=== PATIENT | female | born 1965 | race African-American/Black ===

== ENCOUNTER 2017-07-01 05:39 | Inpatient (IN) | payer MEDICAID ==
[~2017-07-01] VITALS: Ht 177.8 cm; Wt 68.5 kg
[~2017-07-01 05:39] MED LIST: ASPI-1159 PO; ATOR10TA69 PO; ATROV IH; CARV12.545 PO; DOCU-150 PO; FAMO20TA8 PO; FURO-151 PO; ISOS30TA6 PO; KEPP500 PO; PHEN30TA42 PO; POTA10TA15 PO
[2017-07-01 06:34] LABS: BASOPHILS % 0.3 % (0.0-2.0); EOSINOPHILS % 1.9 % (0.0-5.0); HEMATOCRIT. 38.5 % (36.0-48.0); HEMOGLOBIN. 12.4 g/dL (12.0-16.0); LYMPHOCYTES % 16.9 % (20.0-50.0); MEAN CORPUSCULAR HEMOGLOBIN 29.1 pg (28.0-32.0); MEAN PLATELET VOLUME 8.6 fl (7.4-10.4); MONOCYTES % 6.5 % (2.0-8.0); NEUTROPHILS % 74.4 % (40.0-76.0); PLATELET 185 x1000/uL (130-400); RED BLOOD CELL COUNT 4.27 mill/uL (4.2-5.4); RED CELL DISTRIBUTION WIDTH 21.5 % (11.6-14.6)
[2017-07-01 06:42] LABS: INR 2.7; PROTHROMBIN TIME 28.4 sec (9.4-11.6)
[2017-07-01 06:51] LABS: CARBON DIOXIDE 29 mEq/L (21-32); CHLORIDE 109 mEq/L (98-107); TROPONIN I 0.04 ng/mL (0.00-0.04)
[2017-07-01] MEDS ORDERED: NITROGLYCERIN OINT 1GM/INCH UDPKT TD STA (07:22)
[2017-07-01] MEDS ORDERED: METHYLPREDNISOLONE SOD SUCC 125 MG/2 ML VIAL IV STA (07:22)
[2017-07-01] MEDS ORDERED: MORPHINE SULFATE 4 MG/ML CPJ (NOT FOR IM USE) IV STA (07:22)
[2017-07-01] MEDS ORDERED: ALBUTEROL (0.083%) 2.5MG/3ML NEB HHN STA (07:22)
[2017-07-01] MEDS ORDERED: IPRATROPIUM BROMIDE (0.02%) 0.5MG/2.5ML NEB HHN STA (07:22)
[2017-07-01] MEDS ORDERED: ASPIRIN 81MG TABLET PO STA (07:22)
[2017-07-01 09:06] LABS: BG BASE EXCESS 0.7 mmol/L (-2.0-2.0); BG CARBOXYHEMOGLOBIN 0.8 % (0.5-1.5); BG DEOXYHEMOGLOBIN 4.8 % (0.0-5.0); BG FRACTION INSPIRED OXYGEN 28; BG HCO3 ACT 24.7 mmol/L (22.0-26.0); BG METHEMOGLOBIN 0.3 % (0.0-1.5); BG OXYGEN SATURATION 95.1 % (92.0-98.5); BG OXYHEMOGLOBIN 94.1 % (94.0-97.0); BG PCO2 37.4 mmHg (35.0-45.0); BG PH 7.437 (7.350-7.450); BG PO2 81.7 mmHg (75.0-100.0); BG SAMPLE SITE RIGHT RADIAL; BG TOTAL HEMOGLOBIN 13.8 g/dL (12.0-18.0); BG VENT MODE NASAL CANNULA
[2017-07-01] MEDS ORDERED: DOCUSATE SODIUM 100MG CAPSULE PO PRN (10:00)
[2017-07-01] MEDS ORDERED: ZOLPIDEM TARTRATE 5MG TABLET PO PRN (10:00)
[2017-07-01] MEDS ORDERED: LEVOFLOXACIN 500MG PREMIX 100 ML IV SCH ×3 (10:00→14:00)
[2017-07-01] MEDS ORDERED: NITROGLYCERIN 0.4MG TABLET SL SL PRN (10:00)
[2017-07-01] MEDS ORDERED: DIPHENHYDRAMINE 50MG/ML VIAL IV PRN (10:00)
[2017-07-01] MEDS ORDERED: GUAIFENESIN 200MG/10ML SUGAR FREE UDC PO PRN (10:00)
[2017-07-01] MEDS ORDERED: LORAZEPAM 2MG/ML CPJ IV PRN (10:00)
[2017-07-01] MEDS ORDERED: ACETAMINOPHEN 325MG TABLET PO PRN (10:00)
[2017-07-01] MEDS ORDERED: ONDANSETRON HCL 4MG/2ML VIAL IV PRN (10:00)
[2017-07-01] MEDS ORDERED: IPRATROPIUM/ALBUTEROL 0.5-3(2.5)MG/3ML NEB INH PRN (10:00)
[2017-07-01] MEDS ORDERED: POTASSIUM CHLORIDE 20MEQ TABLET SR PO SCH (10:00)
[2017-07-01] MEDS ORDERED: NA PHOS,M-B/NA PHOS,DI-BA ENEMA 118ML PR PRN (10:00)
[2017-07-01 10:26] LABS: HDL CHOLESTEROL 29 mg/dL (40-59); LDL CHOLESTEROL 43 mg/dL (5-100)
[2017-07-01 10:30] LABS: PHENOBARBITAL 4.9 ug/mL (15.0-40.0)
[2017-07-01 10:58] LABS: *AMPHETAMINES SCREEN URINE NEGATIVE (NEGATIVE); *BARBITURATES SCREEN URINE PRESUMTIVE POSITIVE (NEGATIVE); *BENZODIAZEPINES SCREEN URINE NEGATIVE (NEGATIVE); *COCAINE SCREEN URINE PRESUMTIVE POSITIVE (NEGATIVE); CANNABINOID URINE SCREEN NEGATIVE (NEGATIVE); METHADONE URINE SCREEN NEGATIVE (NEGATIVE); OPIATES URINE SCREEN PRESUMTIVE POSITIVE (NEGATIVE); PHENCYCLIDINE URINE SCREEN NEGATIVE (NEGATIVE)
[2017-07-01] MEDS ORDERED: DEXTROSE 50% WATER 50ML SYRINGE IV PRN (11:30)
[2017-07-01 12:00] VITALS: BP 125/90
[2017-07-01] MEDS: INSULIN LISPRO 100 UNITS/ML SUBCUT SCH ×3 (13:24→21:00)
[2017-07-01 16:00] VITALS: BP 110/72
[2017-07-01 16:20] VITALS: BP 110/72
[2017-07-01] MEDS: BLOOD SUGAR DIAGNOSTIC STRIP TEST SCH ×2 (16:45→21:26)
[2017-07-01] MEDS: GUAIFENESIN/DM 600MG/30MG ER TAB 12HR PO SCH ×2 (17:14→21:55)
[2017-07-01] MEDS: LABETALOL HCL 200MG TABLET PO SCH ×2 (17:14→23:00)
[2017-07-01] MEDS: LEVETIRACETAM 500MG TABLET PO SCH ×2 (17:15→21:55)
[2017-07-01] MEDS: METHYLPREDNISOLONE SOD SUCC 125 MG/2 ML VIAL IV SCH ×2 (17:15→22:02)
[2017-07-01] MEDS ORDERED: WARFARIN SODIUM 5MG TABLET PO SCH (18:00)
[2017-07-01] MEDS: KETOROLAC 15MG/ML VIAL IV PRN (18:09)
[2017-07-01] MEDS: FUROSEMIDE 20MG TABLET PO SCH (18:23)
[2017-07-01] MEDS ORDERED: WARF5TAB73 PO (19:44)
[2017-07-01 20:00] VITALS: BP 128/74
[2017-07-01] MEDS ORDERED: ATORVASTATIN CALCIUM 10MG TABLET PO SCH (21:00)
[2017-07-01] MEDS ORDERED: LISINOPRIL 10MG TABLET PO SCH (21:00)
[2017-07-01] MEDS: SPIRONOLACTONE 25MG TABLET PO SCH (21:54)
[2017-07-01] MEDS: FAMOTIDINE 20MG/2ML VIAL IV SCH (21:55)
[2017-07-02] VITALS: BP 104/64
[2017-07-02 04:00] VITALS: BP 105/71
[2017-07-02] MEDS: BLOOD SUGAR DIAGNOSTIC STRIP TEST SCH ×2 (05:49→11:16)
[2017-07-02] MEDS: FUROSEMIDE 20MG TABLET PO SCH (05:49)
[2017-07-02] MEDS: METHYLPREDNISOLONE SOD SUCC 125 MG/2 ML VIAL IV SCH (05:49)
[2017-07-02] MEDS: INSULIN LISPRO 100 UNITS/ML SUBCUT SCH ×2 (06:20→13:20)
[2017-07-02 06:37] LABS: INR 3.7; PROTHROMBIN TIME 39.3 sec (9.4-11.6)
[2017-07-02] MEDS: GUAIFENESIN/DM 600MG/30MG ER TAB 12HR PO SCH (09:20)
[2017-07-02] MEDS: SPIRONOLACTONE 25MG TABLET PO SCH (09:21)
[2017-07-02] MEDS: LEVETIRACETAM 500MG TABLET PO SCH (09:21)
[2017-07-02] MEDS: LABETALOL HCL 200MG TABLET PO SCH (09:21)
[2017-07-02] MEDS: FAMOTIDINE 20MG/2ML VIAL IV SCH (09:22)
[2017-07-02] MEDS: KETOROLAC 15MG/ML VIAL IV PRN (09:41)
[2017-07-02 10:47] VITALS: BP 118/86
[2017-07-02] MEDS ORDERED: LEVOFLOXACIN 500MG PREMIX 100 ML IV SCH (17:00)
== END 2017-07-02 14:30 | disposition home or self-care (01) | DRG 194 ==
LOC: ER 05:45 → 5WST 08:01 → ENRESERV 10:55
PROVIDERS: ADMIT Internal Medicine; ATTEND Internal Medicine
DX: I11.0 Hypertensive heart disease with heart failure (principal); E11.51 Type 2 diabetes mellitus with diabetic peripheral angiopathy without gangrene; E44.0 Moderate protein-calorie malnutrition; I42.9 Cardiomyopathy, unspecified; J44.1 Chronic obstructive pulmonary disease with (acute) exacerbation; E78.00 Pure hypercholesterolemia, unspecified; F17.210 Nicotine dependence, cigarettes, uncomplicated; G40.909 Epilepsy, unspecified, not intractable, without status epilepticus; F14.10 Cocaine abuse, uncomplicated; E87.6 Hypokalemia; Z95.810 Presence of automatic (implantable) cardiac defibrillator; Z91.14 Patient's other noncompliance with medication regimen; Z88.8 Allergy status to other drugs, medicaments and biological substances; Z88.0 Allergy status to penicillin; Z68.21 Body mass index [BMI] 21.0-21.9, adult; I25.2 Old myocardial infarction; Z82.49 Family history of ischemic heart disease and other diseases of the circulatory system; I50.43 Acute on chronic combined systolic (congestive) and diastolic (congestive) heart failure
CPT/HCPCS: 36415; 36600; 71010; 80053; 80061; 80184; 80185; 80305; 82375; 82805; 82962; 83036; 83605; 83880; 84484; 85025; 85610; 87040; 93005; 94640; 96374; 96375; 99285; G0482; J1815; J1885; J1956; J2270; J2930; J3490; J7050; J7611

== ENCOUNTER 2017-07-11 15:46 | Inpatient (IN) | payer MEDICAID ==
[~2017-07-11] VITALS: Ht 177.8 cm; Wt 67.1 kg
[~2017-07-11 15:46] MED LIST changes: +WARF5TAB73 PO
[2017-07-11] MEDS ORDERED: NITROGLYCERIN 0.4MG TABLET SL SL PRN (16:15)
[2017-07-11 16:57] LABS: BASOPHILS % 0.7 % (0.0-2.0); HEMATOCRIT. 34.9 % (36.0-48.0); HEMOGLOBIN. 11.3 g/dL (12.0-16.0); LYMPHOCYTES % 15.9 % (20.0-50.0); MEAN CORPUSCULAR HEMOGLOBIN 29.2 pg (28.0-32.0); MEAN CORPUSCULAR VOLUME 90.2 fL (81.0-99.0); MEAN PLATELET VOLUME 7.9 fl (7.4-10.4); NEUTROPHILS % 73.4 % (40.0-76.0); PLATELET 189 x1000/uL (130-400); RED BLOOD CELL COUNT 3.87 mill/uL (4.2-5.4); RED CELL DISTRIBUTION WIDTH 20.3 % (11.6-14.6)
[2017-07-11 17:02] LABS: CARBON DIOXIDE 27 mEq/L (21-32); CHLORIDE 109 mEq/L (98-107)
[2017-07-11 17:03] LABS: INR 2.1; PARTIAL THROMBOPLASTIN TIME 28.4 sec (23.4-31.0); PROTHROMBIN TIME 21.7 sec (9.4-11.6)
[2017-07-11 17:08] LABS: TROPONIN I 0.03 ng/mL (0.00-0.04)
[2017-07-11 19:50] VITALS: BP 130/78
[2017-07-11 20:00] VITALS: BP 120/85
[2017-07-11] MEDS ORDERED: IPRATROPIUM BROMIDE (0.02%) 0.5MG/2.5ML NEB HHN PRN (22:45)
[2017-07-12] VITALS: BP 120/85
[2017-07-12] MEDS: CARVEDILOL 12.5MG TABLET PO SCH ×2 (00:59→11:15)
[2017-07-12] MEDS: IPRATROPIUM BROMIDE (0.02%) 0.5MG/2.5ML NEB HHN SCH ×4 (01:00→21:35)
[2017-07-12] MEDS: MORPHINE SULFATE 2 MG/ML CPJ (NOT FOR IM USE) IV PRN ×4 (01:00→20:35)
[2017-07-12 04:00] VITALS: BP 117/90
[2017-07-12 08:00] VITALS: BP 155/80
[2017-07-12] MEDS: DOCUSATE SODIUM 250MG CAPSULE PO SCH ×2 (08:57→17:00)
[2017-07-12] MEDS: FAMOTIDINE 20MG TABLET PO SCH (08:58)
[2017-07-12] MEDS: POTASSIUM CHLORIDE 20MEQ TABLET SR PO SCH ×2 (08:58→17:15)
[2017-07-12] MEDS: ISOSORBIDE MONONITRATE 30MG TABLET SR 24HR PO SCH (08:59)
[2017-07-12] MEDS: LEVETIRACETAM 500MG TABLET PO SCH ×2 (08:59→17:15)
[2017-07-12] MEDS ORDERED: PHENOBARBITAL 30 MG PO SCH (09:00)
[2017-07-12] MEDS: METHYLPREDNISOLONE SOD SUCC 40 MG/ML VIAL IV SCH ×2 (09:00→17:15)
[2017-07-12] MEDS: PHENOBARBITAL 30 MG TABLET PO SCH ×3 (09:00→17:15)
[2017-07-12] MEDS: FUROSEMIDE 40MG TABLET PO SCH ×2 (09:00→17:15)
[2017-07-12] MEDS ORDERED: MEDICATION NOT ON FORMULARY EA (Potassium Chloride 20 MEQ) PO SCH (09:00)
[2017-07-12 12:00] VITALS: BP 122/84
[2017-07-12 14:59] LABS: INR 1.9; PROTHROMBIN TIME 20.2 sec (9.4-11.6)
[2017-07-12 16:00] VITALS: BP 107/70
[2017-07-12] MEDS ORDERED: WARFARIN SODIUM 4MG TABLET PO SCH (18:00)
[2017-07-12] MEDS ORDERED: WARFARIN SODIUM 5MG TABLET PO SCH (18:00)
[2017-07-12] MEDS ORDERED: CLONIDINE 0.2MG TABLET PO PRN (18:30)
[2017-07-12 20:00] VITALS: BP 114/70
[2017-07-12] MEDS: ATORVASTATIN CALCIUM 10MG TABLET PO SCH (20:34)
[2017-07-13] VITALS: BP 113/73
[2017-07-13] MEDS: CARVEDILOL 12.5MG TABLET PO SCH (00:11)
[2017-07-13] MEDS: IPRATROPIUM BROMIDE (0.02%) 0.5MG/2.5ML NEB HHN SCH ×4 (02:57→21:10)
[2017-07-13 04:00] VITALS: BP 112/62
[2017-07-13 04:31] LABS: *AMPHETAMINES SCREEN URINE NEGATIVE (NEGATIVE); *BARBITURATES SCREEN URINE PRESUMTIVE POSITIVE (NEGATIVE); *BENZODIAZEPINES SCREEN URINE NEGATIVE (NEGATIVE); CANNABINOID URINE SCREEN NEGATIVE (NEGATIVE); METHADONE URINE SCREEN NEGATIVE (NEGATIVE); OPIATES URINE SCREEN PRESUMTIVE POSITIVE (NEGATIVE); PHENCYCLIDINE URINE SCREEN NEGATIVE (NEGATIVE)
[2017-07-13 04:36] LABS: *COCAINE SCREEN URINE NEGATIVE (NEGATIVE)
[2017-07-13 06:18] LABS: HEMOGLOBIN. 11.2 g/dL (12.0-16.0); MEAN CORPUSCULAR VOLUME 90.4 fL (81.0-99.0); MEAN PLATELET VOLUME 8.4 fl (7.4-10.4); PLATELET 185 x1000/uL (130-400); RED BLOOD CELL COUNT 3.87 mill/uL (4.2-5.4)
[2017-07-13 06:38] LABS: D-DIMER 0.57 mg/L FEU (<0.50); INR 1.5
[2017-07-13 06:58] LABS: CARBON DIOXIDE 26 mEq/L (21-32); CHLORIDE 109 mEq/L (98-107); CREATINE KINASE 42 IU/L (26-192); HDL CHOLESTEROL 22 mg/dL (40-59); LDL CHOLESTEROL 42 mg/dL (5-100); TROPONIN I 0.03 ng/mL (0.00-0.04)
[2017-07-13 08:00] VITALS: BP 127/79
[2017-07-13] MEDS: MORPHINE SULFATE 2 MG/ML CPJ (NOT FOR IM USE) IV PRN ×2 (08:36→21:57)
[2017-07-13] MEDS: ISOSORBIDE MONONITRATE 30MG TABLET SR 24HR PO SCH (08:37)
[2017-07-13] MEDS: FUROSEMIDE 40MG TABLET PO SCH ×2 (08:37→16:38)
[2017-07-13] MEDS: POTASSIUM CHLORIDE 20MEQ TABLET SR PO SCH ×2 (08:37→16:38)
[2017-07-13] MEDS: PHENOBARBITAL 30 MG TABLET PO SCH ×3 (08:37→16:38)
[2017-07-13] MEDS: METHYLPREDNISOLONE SOD SUCC 40 MG/ML VIAL IV SCH ×2 (08:37→16:36)
[2017-07-13] MEDS: DOCUSATE SODIUM 250MG CAPSULE PO SCH ×2 (08:38→16:38)
[2017-07-13] MEDS: FAMOTIDINE 20MG TABLET PO SCH (08:38)
[2017-07-13] MEDS: CARVEDILOL 6.25 MG TABLET PO SCH ×2 (08:38→20:48)
[2017-07-13] MEDS: LEVETIRACETAM 500MG TABLET PO SCH ×2 (08:38→16:37)
[2017-07-13] MEDS: AMLODIPINE 2.5MG TABLET PO SCH ×2 (09:45→20:49)
[2017-07-13 12:00] VITALS: BP 103/72
[2017-07-13] MEDS ORDERED: ONDANSETRON HCL 4MG TABLET PO PRN (12:45)
[2017-07-13] MEDS ORDERED: ONDANSETRON HCL 4MG/2ML VIAL IV PRN (13:15)
[2017-07-13 16:00] VITALS: BP 93/60
[2017-07-13] MEDS ORDERED: WARFARIN SODIUM 5MG TABLET PO SCH (18:00)
[2017-07-13 20:13] VITALS: BP 94/60
[2017-07-13] MEDS: ATORVASTATIN CALCIUM 10MG TABLET PO SCH (20:50)
[2017-07-13] MEDS ORDERED: SODIUM CHLORIDE 0.9% 1,000 ML IV SCH (21:00)
[2017-07-13] MEDS ORDERED: DOCUSATE SODIUM 100MG CAPSULE PO PRN (21:15)
[2017-07-13] MEDS ORDERED: MAGNESIUM/ALUMINUM HYDROXIDE/SIMETHICONE 30ML UDC PO PRN (21:15)
[2017-07-13] MEDS ORDERED: ACETAMINOPHEN 650MG SUPP PR PRN (21:15)
[2017-07-13] MEDS ORDERED: NA PHOS,M-B/NA PHOS,DI-BA ENEMA 118ML PR PRN (21:15)
[2017-07-13] MEDS ORDERED: ACETAMINOPHEN 650MG/20.3ML UDC GT PRN (21:15)
[2017-07-13] MEDS ORDERED: CLONIDINE 0.1MG TABLET PO PRN (21:15)
[2017-07-13] MEDS ORDERED: IPRATROPIUM/ALBUTEROL 0.5-3(2.5)MG/3ML NEB INH PRN ×2 (21:15)
[2017-07-13] MEDS ORDERED: DIPHENHYDRAMINE 50MG/ML VIAL IV PRN (21:15)
[2017-07-13] MEDS ORDERED: ACETAMINOPHEN 325MG TABLET PO PRN (21:15)
[2017-07-13] MEDS: ACETAMINOPHEN 325MG TABLET PO PRN (21:50)
[2017-07-13] MEDS ORDERED: ENOXAPARIN 40MG/0.4ML SYR SUBCUT SCH (22:00)
[2017-07-14] VITALS: BP 103/68
[2017-07-14] MEDS: IPRATROPIUM BROMIDE (0.02%) 0.5MG/2.5ML NEB HHN SCH ×4 (01:20→20:37)
[2017-07-14 04:00] VITALS: BP 96/61
[2017-07-14 05:21] LABS: D-DIMER 0.4 mg/L FEU (<0.50); INR 2.3; PROTHROMBIN TIME 24.1 sec (9.4-11.6)
[2017-07-14 05:52] LABS: HEMATOCRIT. 34.4 % (36.0-48.0); HEMOGLOBIN. 10.8 g/dL (12.0-16.0); MEAN CORPUSCULAR HEMOGLOBIN 28.4 pg (28.0-32.0); MEAN CORPUSCULAR VOLUME 90.5 fL (81.0-99.0); MEAN PLATELET VOLUME 8.9 fl (7.4-10.4); PLATELET 209 x1000/uL (130-400); RED CELL DISTRIBUTION WIDTH 20.4 % (11.6-14.6)
[2017-07-14 06:02] LABS: CHLORIDE 106 mEq/L (98-107)
[2017-07-14 06:22] LABS: CARBON DIOXIDE 27 mEq/L (21-32); HDL CHOLESTEROL 22 mg/dL (40-59); LDL CHOLESTEROL 41 mg/dL (5-100)
[2017-07-14 08:00] VITALS: BP 104/78
[2017-07-14] MEDS: FAMOTIDINE 20MG TABLET PO SCH (08:04)
[2017-07-14] MEDS: POTASSIUM CHLORIDE 20MEQ TABLET SR PO SCH ×2 (08:04→16:24)
[2017-07-14] MEDS: FUROSEMIDE 40MG TABLET PO SCH ×2 (08:04→16:24)
[2017-07-14] MEDS: PHENOBARBITAL 30 MG TABLET PO SCH ×4 (08:04→16:22)
[2017-07-14] MEDS: METHYLPREDNISOLONE SOD SUCC 40 MG/ML VIAL IV SCH ×2 (08:04→16:22)
[2017-07-14] MEDS: LEVETIRACETAM 500MG TABLET PO SCH ×2 (08:04→16:31)
[2017-07-14] MEDS: CARVEDILOL 6.25 MG TABLET PO SCH ×2 (08:05→19:58)
[2017-07-14] MEDS: DOCUSATE SODIUM 250MG CAPSULE PO SCH ×2 (08:05→16:24)
[2017-07-14] MEDS: AMLODIPINE 2.5MG TABLET PO SCH ×2 (08:06→19:58)
[2017-07-14] MEDS: ISOSORBIDE MONONITRATE 30MG TABLET SR 24HR PO SCH (08:06)
[2017-07-14] MEDS: ACETAMINOPHEN 325MG TABLET PO PRN (08:13)
[2017-07-14] MEDS: ONDANSETRON HCL 4MG/2ML VIAL IV PRN ×2 (09:38→09:47)
[2017-07-14] MEDS: GUAIFENESIN 200MG/10ML SUGAR FREE UDC PO PRN ×3 (09:43→16:35)
[2017-07-14 12:00] VITALS: BP 111/81
[2017-07-14 14:09] LABS: PLATELET ESTIMATE NORMAL
[2017-07-14 16:00] VITALS: BP 101/74
[2017-07-14] MEDS: MORPHINE SULFATE 2 MG/ML CPJ (NOT FOR IM USE) IV PRN (19:57)
[2017-07-14] MEDS: ATORVASTATIN CALCIUM 10MG TABLET PO SCH (19:58)
[2017-07-14 20:16] VITALS: BP 100/67
[2017-07-14 22:55] LABS: PLATELET ESTIMATE NORMAL
[2017-07-15] VITALS: BP 109/78
[2017-07-15] MEDS: IPRATROPIUM BROMIDE (0.02%) 0.5MG/2.5ML NEB HHN SCH ×4 (02:41→20:55)
[2017-07-15 04:00] VITALS: BP 101/68
[2017-07-15 06:27] LABS: INR 2.1; PROTHROMBIN TIME 21.4 sec (9.4-11.6)
[2017-07-15 08:00] VITALS: BP 105/73
[2017-07-15] MEDS: AMLODIPINE 2.5MG TABLET PO SCH ×2 (08:01→20:51)
[2017-07-15] MEDS: ISOSORBIDE MONONITRATE 30MG TABLET SR 24HR PO SCH (08:19)
[2017-07-15] MEDS: PHENOBARBITAL 30 MG TABLET PO SCH ×3 (08:22→17:07)
[2017-07-15] MEDS: FAMOTIDINE 20MG TABLET PO SCH (08:22)
[2017-07-15] MEDS: LEVETIRACETAM 500MG TABLET PO SCH ×2 (08:22→17:07)
[2017-07-15] MEDS: POTASSIUM CHLORIDE 20MEQ TABLET SR PO SCH ×2 (08:22→17:07)
[2017-07-15] MEDS: METHYLPREDNISOLONE SOD SUCC 40 MG/ML VIAL IV SCH (08:23)
[2017-07-15] MEDS: DOCUSATE SODIUM 250MG CAPSULE PO SCH ×2 (08:26→17:07)
[2017-07-15] MEDS: CARVEDILOL 6.25 MG TABLET PO SCH ×2 (11:57→21:02)
[2017-07-15] MEDS: FUROSEMIDE 40MG TABLET PO SCH ×2 (11:57→17:07)
[2017-07-15] MEDS: MORPHINE SULFATE 2 MG/ML CPJ (NOT FOR IM USE) IV PRN ×2 (11:58→18:51)
[2017-07-15 12:00] VITALS: BP 113/75
[2017-07-15] MEDS: GUAIFENESIN 200MG/10ML SUGAR FREE UDC PO PRN (15:06)
[2017-07-15 16:00] VITALS: BP 104/63
[2017-07-15] MEDS ORDERED: WARFARIN SODIUM 3MG TABLET PO NR (18:00)
[2017-07-15 20:00] VITALS: BP 102/66
[2017-07-15] MEDS: ATORVASTATIN CALCIUM 10MG TABLET PO SCH (21:00)
[2017-07-16] VITALS: BP 120/58
[2017-07-16] MEDS: IPRATROPIUM BROMIDE (0.02%) 0.5MG/2.5ML NEB HHN SCH ×3 (02:33→10:44)
[2017-07-16 04:00] VITALS: BP 104/65
[2017-07-16] MEDS: MORPHINE SULFATE 2 MG/ML CPJ (NOT FOR IM USE) IV PRN ×2 (05:26→10:19)
[2017-07-16 05:41] LABS: INR 1.5; PROTHROMBIN TIME 16.2 sec (9.4-11.6)
[2017-07-16 08:00] VITALS: BP 97/69
[2017-07-16] MEDS: AMLODIPINE 2.5MG TABLET PO SCH (09:00)
[2017-07-16] MEDS: DOCUSATE SODIUM 250MG CAPSULE PO SCH (09:00)
[2017-07-16] MEDS: PHENOBARBITAL 30 MG TABLET PO SCH ×2 (09:02→13:00)
[2017-07-16] MEDS: FAMOTIDINE 20MG TABLET PO SCH (09:02)
[2017-07-16] MEDS: POTASSIUM CHLORIDE 20MEQ TABLET SR PO SCH (09:02)
[2017-07-16] MEDS: LEVETIRACETAM 500MG TABLET PO SCH (09:03)
[2017-07-16] MEDS: METHYLPREDNISOLONE SOD SUCC 40 MG/ML VIAL IV SCH (09:03)
[2017-07-16 10:00] VITALS: BP 104/75
[2017-07-16] MEDS: ISOSORBIDE MONONITRATE 30MG TABLET SR 24HR PO SCH (10:17)
[2017-07-16] MEDS: GUAIFENESIN 200MG/10ML SUGAR FREE UDC PO PRN (10:22)
[2017-07-16] MEDS: ONDANSETRON HCL 4MG/2ML VIAL IV PRN (10:24)
[2017-07-16] MEDS: FUROSEMIDE 40MG TABLET PO SCH (13:00)
[2017-07-16] MEDS: CARVEDILOL 6.25 MG TABLET PO SCH (13:00)
[2017-07-16 13:28] VITALS: BP_SYST 100; BP_SYST 91; BP_DIAS 62; BP_DIAS 68
[2017-07-16] MEDS ORDERED: WARFARIN SODIUM 2.5MG TABLET PO NR (18:00)
[2017-07-16] MEDS ORDERED: WARFARIN SODIUM 2MG TABLET PO NR (18:00)
== END 2017-07-16 17:00 | disposition home or self-care (01) | DRG 194 ==
LOC: ER 15:46 → 7WST 17:53 → ENRESERV 18:03 → ER 18:59
PROVIDERS: ADMIT Family Medicine; ATTEND Family Medicine
DX: I11.0 Hypertensive heart disease with heart failure (principal); E43 Unspecified severe protein-calorie malnutrition; I42.0 Dilated cardiomyopathy; J44.1 Chronic obstructive pulmonary disease with (acute) exacerbation; I27.2 Other secondary pulmonary hypertension; I25.2 Old myocardial infarction; R07.89 Other chest pain; D63.8 Anemia in other chronic diseases classified elsewhere; G40.909 Epilepsy, unspecified, not intractable, without status epilepticus; E78.00 Pure hypercholesterolemia, unspecified; F19.10 Other psychoactive substance abuse, uncomplicated; F10.10 Alcohol abuse, uncomplicated; F17.210 Nicotine dependence, cigarettes, uncomplicated; I08.1 Rheumatic disorders of both mitral and tricuspid valves; I25.10 Atherosclerotic heart disease of native coronary artery without angina pectoris; I47.1 Supraventricular tachycardia; Z95.810 Presence of automatic (implantable) cardiac defibrillator; Z79.01 Long term (current) use of anticoagulants; Z68.21 Body mass index [BMI] 21.0-21.9, adult; Z88.0 Allergy status to penicillin; Z88.8 Allergy status to other drugs, medicaments and biological substances; Z91.013 Allergy to seafood; Z91.018 Allergy to other foods; Z98.51 Tubal ligation status; Z82.49 Family history of ischemic heart disease and other diseases of the circulatory system; I50.43 Acute on chronic combined systolic (congestive) and diastolic (congestive) heart failure
CPT/HCPCS: 36415; 71010; 74000; 80048; 80053; 80061; 80184; 80305; 82550; 82553; 83735; 83880; 84443; 84484; 85025; 85379; 85610; 85730; 93005; 93306; 94640; 99285; J1650; J2270; J2405; J2920; J7030; J7620

== ENCOUNTER 2017-07-18 20:41 | Emergency (ER) | payer MEDICAID ==
[~2017-07-18] VITALS: Ht 170.2 cm; Wt 75.0 kg
[2017-07-18] MEDS ORDERED: ONDANSETRON HCL 4MG/2ML VIAL IV STA (21:59)
[2017-07-18] MEDS ORDERED: MORPHINE SULFATE 4 MG/ML CPJ (NOT FOR IM USE) IV STA (21:59)
[2017-07-18 22:36] LABS: CLARITY URINE CLEAR (CLEAR); COLOR URINE YELLOW (YELLOW); GLUCOSE URINE NEGATIVE (NEGATIVE); KETONES URINE NEGATIVE (NEGATIVE); LEUKOCYTE ESTERASE URINE 2+ (NEGATIVE); NITRITE URINE NEGATIVE (NEGATIVE); OCCULT BLOOD URINE NEGATIVE (NEGATIVE); PH URINE 7.5 (4.5-8.0); PROTEIN URINE NEGATIVE (NEGATIVE); UROBILINOGEN URINE 0.2 E.U./dL (0.2-1.0)
[2017-07-18 22:47] LABS: BASOPHILS % 0.4 % (0.0-2.0); EOSINOPHILS % 3.4 % (0.0-5.0); HEMATOCRIT. 36.2 % (36.0-48.0); HEMOGLOBIN. 11.6 g/dL (12.0-16.0); LYMPHOCYTES % 14.7 % (20.0-50.0); MEAN CORPUSCULAR HEMOGLOBIN 28.9 pg (28.0-32.0); MEAN PLATELET VOLUME 7.6 fl (7.4-10.4); MONOCYTES % 7.7 % (2.0-8.0); NEUTROPHILS % 73.8 % (40.0-76.0); PLATELET 270 x1000/uL (130-400); RED BLOOD CELL COUNT 4.02 mill/uL (4.2-5.4); RED CELL DISTRIBUTION WIDTH 20.1 % (11.6-14.6)
[2017-07-18 22:57] LABS: D-DIMER 0.66 mg/L FEU (<0.50); INR 1.3; PARTIAL THROMBOPLASTIN TIME 24.7 sec (23.4-31.0); PROTHROMBIN TIME 13.5 sec (9.4-11.6)
[2017-07-18 22:58] LABS: CARBON DIOXIDE 28 mEq/L (21-32); CHLORIDE 109 mEq/L (98-107)
[2017-07-18 23:01] LABS: TROPONIN I 0.05 ng/mL (0.00-0.04)
[2017-07-19 10:57] VITALS: BP 124/89
== END 2017-07-19 11:10 | disposition home or self-care (01) ==
LOC: ER 21:22
DX: R07.2 Precordial pain (principal); I50.9 Heart failure, unspecified; Z95.810 Presence of automatic (implantable) cardiac defibrillator; Z79.82 Long term (current) use of aspirin; Z79.01 Long term (current) use of anticoagulants; Z88.0 Allergy status to penicillin; Z91.013 Allergy to seafood
CPT/HCPCS: 36415; 71010; 80053; 81001; 83880; 84484; 85025; 85379; 85610; 85730; 93005; 93970; 96374; 96375; 99285; J2270; J2405; Z7610

== ENCOUNTER 2017-09-03 01:09 | Inpatient (IN) | payer MEDICAID, OTHER ==
[~2017-09-03] VITALS: Ht 177.8 cm; Wt 68.0 kg
[2017-09-03] MEDS ORDERED: IPRATROPIUM BROMIDE (0.02%) 0.5MG/2.5ML NEB HHN STA (01:25)
[2017-09-03] MEDS ORDERED: METHYLPREDNISOLONE SOD SUCC 125 MG/2 ML VIAL IV STA (01:25)
[2017-09-03] MEDS ORDERED: SALMETEROL 50 MCG/INH 28 BLIST DISKUS INHR ORI STA (01:25)
[2017-09-03 01:53] LABS: BASOPHILS % 0.4 % (0.0-2.0); EOSINOPHILS % 3.4 % (0.0-5.0); HEMATOCRIT. 35.9 % (36.0-48.0); HEMOGLOBIN. 11.6 g/dL (12.0-16.0); LYMPHOCYTES % 20.8 % (20.0-50.0); MEAN CORPUSCULAR HEMOGLOBIN 28.8 pg (28.0-32.0); MEAN CORPUSCULAR VOLUME 89.1 fL (81.0-99.0); MEAN PLATELET VOLUME 7.9 fl (7.4-10.4); MONOCYTES % 7.7 % (2.0-8.0); NEUTROPHILS % 67.7 % (40.0-76.0); PLATELET 276 x1000/uL (130-400); RED BLOOD CELL COUNT 4.03 mill/uL (4.2-5.4); RED CELL DISTRIBUTION WIDTH 20.5 % (11.6-14.6)
[2017-09-03 02:12] LABS: CARBON DIOXIDE 27 mEq/L (21-32); CHLORIDE 110 mEq/L (98-107); TROPONIN I 0.04 ng/mL (0.00-0.04)
[2017-09-03 02:26] LABS: INR 1.6
[2017-09-03] MEDS ORDERED: MAGNESIUM 2 G PREMIX 50 ML IV ONE (04:30)
[2017-09-03] MEDS ORDERED: KETOROLAC 15MG/ML VIAL IV ONE (05:15)
[2017-09-03 09:00] VITALS: BP 140/100
[2017-09-03 09:11] VITALS: BP 140/101
[2017-09-03] MEDS ORDERED: ENOXAPARIN 40MG/0.4ML SYR SUBCUT SCH (09:50)
[2017-09-03] MEDS: IPRATROPIUM BROMIDE (0.02%) 0.5MG/2.5ML NEB HHN SCH ×4 (10:25→22:00)
[2017-09-03] MEDS: METHYLPREDNISOLONE SOD SUCC 40 MG/ML VIAL IV SCH ×2 (10:29→16:56)
[2017-09-03] MEDS: POTASSIUM CHLORIDE 20MEQ TABLET SR PO SCH (10:29)
[2017-09-03] MEDS: LEVETIRACETAM 250MG TABLET PO SCH ×2 (10:29→21:24)
[2017-09-03] MEDS: FUROSEMIDE 40MG TABLET PO SCH ×2 (10:29→16:56)
[2017-09-03] MEDS: CARVEDILOL 12.5MG TABLET PO SCH ×2 (10:30→21:24)
[2017-09-03] MEDS: ISOSORBIDE MONONITRATE 30MG TABLET SR 24HR PO SCH (10:30)
[2017-09-03] MEDS: HYDROCODONE/ACETAMINOPHEN 5/325MG TABLET PO PRN ×2 (10:31→17:00)
[2017-09-03] MEDS: FAMOTIDINE 20MG TABLET PO SCH (10:31)
[2017-09-03] MEDS: ASPIRIN 81MG EC TABLET PO SCH (10:31)
[2017-09-03 12:00] VITALS: BP 128/84
[2017-09-03] MEDS ORDERED: PNEUMOCOCCAL 23-VAL P-SAC VAC 0.5 ML IM ONE (12:00)
[2017-09-03] MEDS ORDERED: INFLUENZA VIRUS VACCINE 0.5ML SYR IM ONE (12:00)
[2017-09-03] MEDS: PHENOBARBITAL 30 MG TABLET PO SCH ×2 (13:05→16:57)
[2017-09-03 16:00] VITALS: BP 119/75
[2017-09-03] MEDS: WARFARIN SODIUM 5MG TABLET PO SCH (16:56)
[2017-09-03 19:14] LABS: *AMPHETAMINES SCREEN URINE NEGATIVE (NEGATIVE); *BARBITURATES SCREEN URINE PRESUMTIVE POSITIVE (NEGATIVE); *BENZODIAZEPINES SCREEN URINE NEGATIVE (NEGATIVE); *COCAINE SCREEN URINE NEGATIVE (NEGATIVE); CANNABINOID URINE SCREEN NEGATIVE (NEGATIVE); METHADONE URINE SCREEN NEGATIVE (NEGATIVE); OPIATES URINE SCREEN NEGATIVE (NEGATIVE); PHENCYCLIDINE URINE SCREEN NEGATIVE (NEGATIVE)
[2017-09-03 20:00] VITALS: BP 117/77
[2017-09-03] MEDS: ATORVASTATIN CALCIUM 10MG TABLET PO SCH (21:24)
[2017-09-03] MEDS: HYDROCODONE/ACETAMINOPHEN 10/325MG TABLET PO PRN (21:25)
[2017-09-04] VITALS (7 sets, daily range): BP systolic 108–126; BP diastolic 71–88
[2017-09-04] MEDS: IPRATROPIUM BROMIDE (0.02%) 0.5MG/2.5ML NEB HHN SCH ×6 (00:57→21:08)
[2017-09-04] MEDS: METHYLPREDNISOLONE SOD SUCC 40 MG/ML VIAL IV SCH ×3 (05:37→17:12)
[2017-09-04] MEDS: HYDROCODONE/ACETAMINOPHEN 10/325MG TABLET PO PRN ×4 (05:39→21:17)
[2017-09-04 06:46] LABS: INR 1.9; PROTHROMBIN TIME 20.3 sec (9.4-11.6)
[2017-09-04 07:45] LABS: BASOPHILS % 0.2 % (0.0-2.0); EOSINOPHILS % 0.7 % (0.0-5.0); HEMATOCRIT. 32.6 % (36.0-48.0); HEMOGLOBIN. 10.3 g/dL (12.0-16.0); LYMPHOCYTES % 12.7 % (20.0-50.0); MEAN CORPUSCULAR HEMOGLOBIN 28.2 pg (28.0-32.0); MEAN CORPUSCULAR VOLUME 88.9 fL (81.0-99.0); MEAN PLATELET VOLUME 8.5 fl (7.4-10.4); NEUTROPHILS % 79.4 % (40.0-76.0); PLATELET 270 x1000/uL (130-400); RED BLOOD CELL COUNT 3.67 mill/uL (4.2-5.4); RED CELL DISTRIBUTION WIDTH 20.2 % (11.6-14.6)
[2017-09-04] MEDS: FUROSEMIDE 40MG TABLET PO SCH ×2 (08:56→17:12)
[2017-09-04] MEDS: ISOSORBIDE MONONITRATE 30MG TABLET SR 24HR PO SCH (08:57)
[2017-09-04] MEDS: PHENOBARBITAL 30 MG TABLET PO SCH ×3 (08:58→17:12)
[2017-09-04] MEDS: CARVEDILOL 12.5MG TABLET PO SCH ×2 (08:58→20:05)
[2017-09-04] MEDS: ASPIRIN 81MG EC TABLET PO SCH (08:58)
[2017-09-04] MEDS: POTASSIUM CHLORIDE 20MEQ TABLET SR PO SCH (09:00)
[2017-09-04] MEDS: FAMOTIDINE 20MG TABLET PO SCH ×2 (09:01→17:19)
[2017-09-04] MEDS: LEVETIRACETAM 250MG TABLET PO SCH ×2 (09:01→20:05)
[2017-09-04 09:32] LABS: CARBON DIOXIDE 25 mEq/L (21-32); CHLORIDE 107 mEq/L (98-107)
[2017-09-04] MEDS: WARFARIN SODIUM 5MG TABLET PO SCH (17:12)
[2017-09-04] MEDS: ATORVASTATIN CALCIUM 10MG TABLET PO SCH (20:05)
[2017-09-05] VITALS (7 sets, daily range): BP systolic 99–119; BP diastolic 69–86
[2017-09-05] MEDS: IPRATROPIUM BROMIDE (0.02%) 0.5MG/2.5ML NEB HHN SCH ×5 (02:32→16:04)
[2017-09-05] MEDS: METHYLPREDNISOLONE SOD SUCC 40 MG/ML VIAL IV SCH ×3 (02:54→17:13)
[2017-09-05] MEDS: HYDROCODONE/ACETAMINOPHEN 10/325MG TABLET PO PRN ×4 (04:01→18:47)
[2017-09-05] MEDS: FUROSEMIDE 40MG TABLET PO SCH ×2 (06:24→17:13)
[2017-09-05 06:40] LABS: INR 2.1
[2017-09-05] MEDS: FAMOTIDINE 20MG TABLET PO SCH ×2 (09:02→17:14)
[2017-09-05] MEDS: LEVETIRACETAM 250MG TABLET PO SCH (09:02)
[2017-09-05] MEDS: PHENOBARBITAL 30 MG TABLET PO SCH ×3 (09:02→17:14)
[2017-09-05] MEDS: ISOSORBIDE MONONITRATE 30MG TABLET SR 24HR PO SCH (09:02)
[2017-09-05] MEDS: CARVEDILOL 12.5MG TABLET PO SCH (09:03)
[2017-09-05] MEDS: POTASSIUM CHLORIDE 20MEQ TABLET SR PO SCH (09:03)
[2017-09-05] MEDS: ASPIRIN 81MG EC TABLET PO SCH (09:03)
[2017-09-05] MEDS: WARFARIN SODIUM 5MG TABLET PO SCH (17:14)
== END 2017-09-05 21:05 | disposition home or self-care (01) | DRG 133 ==
LOC: ER 01:09 → 7WST 07:04 → ENRESERV 07:54
PROVIDERS: ADMIT Internal Medicine; ATTEND Internal Medicine
DX: J96.00 Acute respiratory failure, unspecified whether with hypoxia or hypercapnia (principal); I42.0 Dilated cardiomyopathy; E44.0 Moderate protein-calorie malnutrition; I50.20 Unspecified systolic (congestive) heart failure; I13.0 Hypertensive heart and chronic kidney disease with heart failure and stage 1 through stage 4 chronic kidney disease, or unspecified chronic kidney disease; J44.1 Chronic obstructive pulmonary disease with (acute) exacerbation; I27.20 Pulmonary hypertension, unspecified; E66.9 Obesity, unspecified; N18.9 Chronic kidney disease, unspecified; E78.5 Hyperlipidemia, unspecified; F10.21 Alcohol dependence, in remission; F17.200 Nicotine dependence, unspecified, uncomplicated; I25.10 Atherosclerotic heart disease of native coronary artery without angina pectoris; Z79.01 Long term (current) use of anticoagulants; Z79.899 Other long term (current) drug therapy; Z82.49 Family history of ischemic heart disease and other diseases of the circulatory system; Z95.810 Presence of automatic (implantable) cardiac defibrillator; Z88.8 Allergy status to other drugs, medicaments and biological substances; Z88.0 Allergy status to penicillin; Z91.013 Allergy to seafood; Z99.81 Dependence on supplemental oxygen; Z68.21 Body mass index [BMI] 21.0-21.9, adult
CPT/HCPCS: 36415; 71010; 80048; 80053; 80305; 83880; 84484; 85025; 85610; 90686; 90732; 93005; 94640; 96365; 96375; 97163; 99285; J1885; J2920; J2930; J3475